=== PATIENT | male | born 1960 | race Caucasian/White ===

== ENCOUNTER 2017-03-13 10:15 | Inpatient (IN) | payer BC ==
[~2017-03-13] VITALS: Ht 180.3 cm; Wt 95.3 kg
[2017-03-13 10:17] VITALS: BP_SYST 142
[2017-03-13 10:39] LABS: BASOPHILS % (AUTO) 0.1 % (0.0-2.0); EOSINOPHILS # (AUTO) 0.1 K/uL (0.0-0.4); EOSINOPHILS % (AUTO) 1.1 % (0.0-4.0); HEMATOCRIT 48.2 % (36-54); HEMOGLOBIN 15.4 g/dL (14.0-18.0); LYMPHOCYTES # (AUTO) 2.8 K/uL (1.0-5.5); LYMPHOCYTES % (AUTO) 26.1 % (20.5-51.5); MEAN CORPUSCULAR HEMOGLOBIN 30 pg (27-31); MEAN CORPUSCULAR HGB CONC 32 % (32-36); MEAN CORPUSCULAR VOLUME 93 fL (79.0-98.0); MONOCYTES # (AUTO) 0.9 K/uL (0.0-1.0); MONOCYTES % (AUTO) 8.2 % (1.7-9.3); NEUTROPHILS % (AUTO) 64.5 % (40.0-70.0); PLATELET COUNT (AUTO) 236 K/uL (130-430); RED CELL DISTRIBUTION WIDTH 12.8 % (9.0-15.0); WHITE BLOOD COUNT (AUTO) 10.8 K/uL (4.8-10.8)
[2017-03-13] MEDS ORDERED: ASPIRIN 325 MG TABLET (ECOTRIN) PO ONE ×2 (10:42→11:30)
[2017-03-13 10:51] LABS: CREATININE 1.03 mg/dL (0.55-1.30)
[2017-03-13 10:52] LABS: PROTHROMBIN TIME 9.9 SECS (9.5-12.5)
[2017-03-13 10:56] LABS: ALBUMIN 4.1 g/dL (3.4-4.8); TOTAL BILIRUBIN 1.5 mg/dL (0.0-1.0)
[2017-03-13] MEDS ORDERED: HYDROcodone/ACETAMIN 10-325 MG TAB PO ONE (11:30)
[2017-03-13 12:15] VITALS: BP_SYST 128
[2017-03-13] MEDS ORDERED: FLU VACC QS 2017-18(36MOS+)/PF 0.5 ML/SYR SYRINGE I.M. PRN (12:30)
[2017-03-13] MEDS ORDERED: ONDANSETRON HCL 4 MG/2 ML VIAL IVP PRN (13:30)
[2017-03-13] MEDS ORDERED: MORPHINE 4 MG/ML INJ. SYRINGE ONE (13:30)
[2017-03-13] MEDS ORDERED: MORPHINE 2 MG/ML INJ. SYRINGE IVP PRN (13:30)
[2017-03-13] MEDS ORDERED: ACETAMINOPHEN 325 MG TABLET PO PRN (13:30)
[2017-03-13] MEDS ORDERED: ONDANSETRON HCL 4 MG/2 ML VIAL ONE (13:31)
[2017-03-13 16:41] VITALS: BP_SYST 134
[2017-03-13] MEDS: MORPHINE 4 MG/ML INJ. SYRINGE IVP PRN (18:23)
[2017-03-13 20:00] VITALS: BP_SYST 100
[2017-03-14] MEDS: MORPHINE 4 MG/ML INJ. SYRINGE IVP PRN (00:04)
[2017-03-14 00:20] VITALS: BP_SYST 140
[2017-03-14 04:17] VITALS: BP_SYST 137
[2017-03-14 07:30] VITALS: BP_SYST 127
[2017-03-14 11:20] VITALS: BP_SYST 95
[2017-03-14 12:00] VITALS: BP_SYST 125
== END 2017-03-14 14:10 | disposition home or self-care (01) | DRG 316 ==
LOC: SED 10:15 → STU 11:43
PROVIDERS: ADMIT Internal Medicine Hospice and Palliative Medicine; ATTEND Internal Medicine Hospice and Palliative Medicine
DX: I30.9 Acute pericarditis, unspecified (principal); E78.5 Hyperlipidemia, unspecified
CPT/HCPCS: 36415; 71010; 80053; 82550-TC; 83880; 84484; 85025; 85379; 85610-TC; 85730-TC; 93005; 93306; 99285; J2270; J2405